=== PATIENT | male | born 1980 | race Caucasian/White ===

== ENCOUNTER → 2017-06-14 | Outpatient (CLI) | payer BC ==
--- NOTE | 2017-06-14 13:30 | XR ---
EXAMINATION TYPE: XR foot complete LT DATE OF EXAM: 06/14/2017 COMPARISON: NONE HISTORY: Pain TECHNIQUE: Three views are submitted. FINDINGS: The osseous structures are intact and the joint spaces are preserved. There is no acute fracture or dislocation. Chronic appearing deformity of the distal phalanx first digit. IMPRESSION: 1. No acute fracture or dislocation. If symptoms persist, follow-up exam in 7 to 10 days could be ob tained. Deformity involving the distal phalanx first digit chronic correlate with point tenderness.
== END ==
LOC: RADXRMAIN 13:05
PROVIDERS: ATTEND Nurse Practitioner Adult Health
DX: M21.6X2 Other acquired deformities of left foot (principal)